=== PATIENT | female | born 1945 | race Caucasian/White ===

== ENCOUNTER → 2018-10-17 16:07 | Outpatient (CLI) | payer MEDICARE, SELFPAY ==
--- NOTE | 2018-10-17 16:11 | DI.RAD.S_ITS ---
PROCEDURE: XR LUMBAR SPINE MIN 4V INDICATIONS: back pain TECHNIQUE: 5 views of the lumbar spine were acquired. COMPARISON: None. FINDINGS: Bones: 5 nonrib-bearing vertebrae are present. There is normal bony alignment. No vertebral body compression fractures. No suspicious bony lesions. Soft tissues: Overlying bowel gas pattern is normal. No suspicious soft tissue calcifications. Oblique images: No pars defects. IMPRESSION: 1. No spondylolysis or spondylolisthesis. Dictated by: Altagracia Beck M.D. on 10/17/2018 at 16:50 Approved by: Altagracia Beck M.D. on 10/17/2018 at 16:50
--- NOTE | 2018-10-17 16:11 | DI.RAD.S_ITS ---
PROCEDURE: XR THORACIC SPINE 2V INDICATIONS: back pain TECHNIQUE: 2 views of the thoracic spine were acquired. COMPARISON: None. FINDINGS: Bones: No fractures or dislocations. No suspicious bony lesions. There is exaggerated kyphosis of the thoracic spine with mild anterior wedging at the thoracolumbar junction and throughout the mid thoracic spine. 12 pairs of ribs are noted, and appear intact where visualized. Soft tissues: No paravertebral stripe thickening. IMPRESSION: Exaggerated kyphosis of the thoracic spine secondary to mild diffuse anterior wedging. No acute appearing wedge compression deformity noted. Dictated by: Altagracia Beck M.D. on 10/17/2018 at 16:49 Approved by: Altagracia Beck M.D. on 10/17/2018 at 16:49
--- NOTE | 2018-10-17 16:14 | DI.RAD.S_ITS ---
PROCEDURE: XR CERVICAL SPINE MIN 6V INDICATIONS: neck pain TECHNIQUE: 8 views of the cervical spine were acquired. COMPARISON: None. FINDINGS: Bones: No fractures or dislocations to the C7 level. No suspicious bony lesions. There is normal range of motion between flexion and extension. Approximately 2 mm subluxation is present from flexion to extension at C3-4. No neuroforaminal stenosis. Soft tissues: Prevertebral soft tissues are normal in thickness. IMPRESSION: 1. Trace subluxation at C3-4 from flexion to extension. 2. No neuroforaminal stenosis. Dictated by: Altagracia Beck M.D. on 10/17/2018 at 16:47 Approved by: Altagracia Beck M.D. on 10/17/2018 at 16:49
== END ==
PROVIDERS: PCP Nurse Practitioner Family; Visit Provider Physical Medicine & Rehabilitation
DX: M54.2 Cervicalgia (principal); M54.9 Dorsalgia, unspecified; M47.812 Spondylosis without myelopathy or radiculopathy, cervical region; M47.817 Spondylosis without myelopathy or radiculopathy, lumbosacral region; S22.080A Wedge compression fracture of T11-T12 vertebra, initial encounter for closed fracture; Z68.23 Body mass index [BMI] 23.0-23.9, adult
CPT/HCPCS: 72052; 72070; 72110; 99214

== ENCOUNTER → 2018-12-31 17:19 | Outpatient (CLI) | payer MEDICARE, SELFPAY ==
--- NOTE | 2018-12-31 17:21 | DI.MRI.S_ITS ---
PROCEDURE: MR THORACIC SPINE WO CON INDICATIONS: Thoracic radiculopathy TECHNIQUE: Noncontrast sagittal T1 spine echo and T2 fast spin echo, sagittal STIR, axial T1 and T2 fast spin echo through the thoracic spine. COMPARISON: [facility], CR, XR LUMBAR SPINE MIN 4V, 10/17/2018, 16:16. [facility], CR, XR THORACIC SPINE 2V, 10/17/2018, 16:16. FINDINGS: Image quality: Excellent. Alignment and Curvature: There is normal bony alignment. Bone Marrow: Marrow is of normal overall signal. No acute vertebral body compression fractures. Several mild anterior wedge deformities are seen, without acute features. The most prominent of these is seen at T12. Scattered foci are seen, which are hyperintense on T1-weighted and T2-weighted imaging, which are most consistent with benign vertebral body hemangiomas. Spinal Cord: Visualized spinal cord is normal in size and signal. Paraspinous Soft Tissues: No paravertebral masses. Miscellaneous: At T10-T11, there is a central/left disc protrusion seen, with minimal central canal narrowing. No neural foraminal narrowing. At T12-L1, there is generalized disc bulge seen, with a superimposed central/right disc protrusion, with mild central canal narrowing and mild mass effect upon the ventral spinal cord. No neural foraminal narrowing is seen. IMPRESSION: Accentuated thoracic kyphosis, with several mild anterior wedge deformities. Focal lower thoracic spine degenerative change. Dictated by: Tee Fletcher M.D. on 01/01/2019 at 9:03 Approved by: Tee Fletcher M.D. on 01/01/2019 at 9:07
== END ==
PROVIDERS: PCP Nurse Practitioner Family; Visit Provider Physical Medicine & Rehabilitation
DX: M40.204 Unspecified kyphosis, thoracic region (principal); M51.14 Intervertebral disc disorders with radiculopathy, thoracic region; M51.15 Intervertebral disc disorders with radiculopathy, thoracolumbar region
CPT/HCPCS: 72146

== ENCOUNTER 2019-04-23 09:33 | Outpatient (CLI) | payer MEDICARE, SELFPAY ==
[2019-04-23] VITALS (7 sets, daily range): BP systolic 106–139; BP diastolic 47–76; PULSE 53–72; RESP 16–18; TEMP 36.1; O2SAT 96–100
--- NOTE | 2019-04-23 10:27 | DI.RAD.S_ITS ---
PROCEDURE: PAIN L INTERLAMINAR/CAUDAL INJ INDICATIONS: INTERVERTEBRAL DISC DISPLACEMENT FINDINGS: Fluoroscopic spot filming was performed to verify placement of spinal needles at the T10-T11 level(s), as labeled on the films. Appropriate location(s) of the needle tip(s) was confirmed by injection of iodinated contrast. IMPRESSION: Fluoroscopy for pain management. Dictated by: Lawrence Shaw M.D. on 04/23/2019 at 17:42 Approved by: Lawrence Shaw M.D. on 04/23/2019 at 17:42
[2019-04-23] MEDS: MIDAZOLAM 5 MG/5 ML VIAL IV (11:15)
[2019-04-23] MEDS: fentaNYL 100 MCG/2 ML INJ 50 MCG IV (11:16)
[2019-04-23] MEDS: IOPAMIDOL 15 ML VIAL 3 ML INJ (11:22)
[2019-04-23] MEDS: BUPIVACAINE 0.25% (PF) VIAL 2 ML INJ (11:22)
[2019-04-23] MEDS: DEXAMETHASONE 10 MG/ML VIAL 30 MG INJ (11:23)
--- NOTE | 2019-04-23 11:28 | PC.NURSE ---
ASSISTING PT OFF TABLE AND TRANSPORTING TO POST PROC AREA IN STABLE CONDITION. PASSING RN CARE OF PT OFF TO JOHN Bai RN.
--- NOTE | 2019-04-23 11:34 | PM.PROC.1 ---
Procedures Date/Time Date of procedure: 04/23/19 Time of procedure: 11:34 General Procedure description: Preop diagnosis: Thoracic stenosis with HNP Postprocedure diagnosis: Thoracic stenosis with HNP Physician: Froilan Land D.O. Indications: Brittany is referred by KRIS Hernandez for treatment of thoracic DDD/DJD with radiculopathy Description of procedure: Fluoroscopic guided, contrast controlled T10/11 translaminar epidural steroid injection with conscious sedation. Following review of allergy review potential side effects and complications, including, but not necessarily limited to, infection, allergic reaction, local tissue breakdown, temporary as well as permanent nerve injury, stroke, paralysis and possible , the patient indicated that they understood and agreed to proceed. An informed consent document was signed by the patient, witnessed by the nurse, and placed in the patient's chart. Additionally other treatment options including modalities, medications and physical therapy were reviewed with the patient. After review of previous anaesthesic history and IV conscious sedation the patient was deemed safe to proceed with todays procedure with IV conscious sedation as ASA class II designation. Safety time-out was performed to confirm patient ID, procedure to be performed and site of procedure. IV sedation was accomplished with a combination of 2mg of Versed and 50mcg of Fentanyl administered by the RN after DO order, titrated to patient comfort during the course of the procedure while the patient remained responsive to all verbal commands In the prone position, following sterile prep and drape of the thoracic region the T10/11 translaminar space was identified fluoroscopically. The skin was anesthetized via 25 gauge 20 mm sheath with 1% lidocaine solution. At this point a 20 gauge epidural needle was atraumatically introduced and advanced under fluoroscopic guidance into the region of the T10/11 translaminar space depth was confirmed on lateral view. Radiographic data, including multiple fluoroscopic views of the thoracic spine, reveals spinal needle at the T10/11 translaminar space. Lateral views then showed the placement of the needle in the epidural space. Subsequent view show contrast material flowing superiorly and inferiorly in the epidural space. No vascular or intrathecal uptake is observed. At this point using loss of resistance technique with saline and the epidural space was entered. This was confirmed followed negative aspiration and injection of approximately 1.5 cc of Isovue 200 showed excellent epidural flow without vascular or intrathecal uptake. At this point, 1 cc of 1% lidocaine solution was admitted as a test dose and the patient was observed for an appropriate period of time without signs or symptoms of complications, including abdominal pain, shortness of breath, bilateral upper and lower extremity weakness, nausea and vomiting, prior to steroid injection. Subsequently, 3cc or 30mg of dexamethasone was then injected without incident. The patient tolerated the procedure well without signs of complications and subsequently was transferred to the recovery room for further monitoring. The patient was then transferred to the recovery area with their observed for an appropriate time after the injection. Patient reported a VAS score of 7 prior to the procedure and postprocedure VAS of 2. Total fluoroscopy time: 56.3 sec Total conscious sedation time: 24 min Froilan Land D.O. Complications: none
== END 2019-04-23 11:55 ==
PROVIDERS: PCP Nurse Practitioner Family; Visit Provider Physical Medicine & Rehabilitation
DX: M48.04 Spinal stenosis, thoracic region (principal); M51.14 Intervertebral disc disorders with radiculopathy, thoracic region; M47.24 Other spondylosis with radiculopathy, thoracic region
CPT/HCPCS: 62321; 62323; 99152; J1100; J2250; J3010

== ENCOUNTER 2019-07-21 10:24 | Outpatient (CLI) | payer MEDICARE, SELFPAY ==
[2019-07-21] VITALS (11 sets, daily range): BP systolic 79–129; BP diastolic 43–71; PULSE 52–68; RESP 12–18; TEMP 36.2; O2SAT 94–96
--- NOTE | 2019-07-21 10:25 | DI.RAD.S_ITS ---
PROCEDURE: PAIN C/T INTERLAMINAR INJECT INDICATIONS: SPINAL STENOSIS FINDINGS: Fluoroscopic spot filming was performed to verify placement of spinal needles at the C6-C7 level(s), as labeled on the films. Appropriate location(s) of the needle tip(s) was confirmed by injection of iodinated contrast. Dictated by: Dheeraj Boyce M.D. on 07/21/2019 at 13:40 Approved by: Dheeraj Boyce M.D. on 07/21/2019 at 13:41
[2019-07-21] MEDS: MIDAZOLAM 5 MG/5 ML VIAL IV (11:33)
[2019-07-21] MEDS: fentaNYL 100 MCG/2 ML INJ 50 MCG IV (11:33)
--- NOTE | 2019-07-21 11:38 | PC.NURSE ---
AWARE OF DECREASED BP. NO NEW ORDERS.
[2019-07-21] MEDS: BUPIVACAINE 0.25% (PF) VIAL 2 ML INJ (11:39)
[2019-07-21] MEDS: IOPAMIDOL 15 ML VIAL 3 ML INJ (11:40)
[2019-07-21] MEDS: DEXAMETHASONE 10 MG/ML VIAL 20 MG INJ (11:40)
--- NOTE | 2019-07-21 11:49 | PM.PROC.1 ---
Procedures Date/Time Date of procedure: 07/21/19 Time of procedure: 11:49 General Procedure description: PREOP DIAGNOSIS 1. CERVICAL STENOSIS, 2. CERVICAL HNP WITH UPPER EXTREMITY RADICULAR FEATURES, POST OP DIAGNOSIS 1. CERVICAL STENOSIS, 2. CERVICAL HNP WITH UPPER EXTREMITY RADICULAR FEATURES, PROCEDURES 1. FLUORSCOPICALLY GUIDED CONTRAST CONTROLLED INTERLAMINAR EPIDURAL STEROID INJECTION - C6/7 TL CARIDAD PHYSICIAN: Froilan Land, DO INDICATIONS Brittany is referred for treatment of Cervical HNP with Upper Extremity Paresthesias. FINDINGS Cervical Stenosis due to disc deterioration and nerve root irritation and nerve root irritation DESCRIPTION OF PROCEDURE Fluoroscopically guided, contrast-controlled C6/7 translaminar epidural steroid injection with conscious sedation. Following review of allergy and review of potential side effects and complications, including, but not necessarily limited to, infection, allergic reaction, local tissue breakdown, temporary as well as permanent nerve injury, stroke, paralysis, and possible , the patient indicated that patient understood and agreed to proceed. An informed consent document was signed by the patient, witnessed by a nurse, and placed in the patient's chart. Additionally, other treatment options including modalities, medications, and physical therapy were reviewed with the patient. After review of previous anaesthesic history and IV conscious sedation the patient was deemed safe to proceed with todays procedure with IV conscious sedation as ASA class II designation. Safety time-out was performed to confirm patient ID, procedure to be performed and site of procedure. IV sedation was accomplished with a combination of 2mg of Versed and 50mcg of Fentanyl administered by the RN after DO order, titrated to patient comfort during the course of the procedure while the patient remained responsive to all verbal commands. In the prone position, following sterile prep and drape of the cervical region, the C6/7 translaminar space was identified fluoroscopically. The skin was anesthetized via a 25-gauge 1.5-inch needle with 1% lidocaine solution. At this point, a 25-gauge, 2.5-inch short bevel spinal needle was atraumatically introduced and advanced under fluoroscopic guidance into epidural space at the C6/7 translaminar space. Depth was confirmed on lateral view. Radiological data, including multiple fluoroscopic views of the cervical spine, reveal a spinal needle at the C6/7 translaminar space. Lateral views then show placement of the needle in the epidural space. Subsequent views show contrast material flowing superiorly and inferiorly in the epidural space. DSA fluoroscopy with live contrast injection, once again, confirmed no vascular or intrathecal uptake. At this point, using loss of resistance technique with saline and air, the epidural space was entered. Following negative aspiration, injection of approximately 1.5 cc of Isovue-200 with live fluoroscopy in the AP view confirmed epidural flow in the epidural space without vascular or intrathecal uptake observed. Subsequently, a test dose of 1 cc of 1% lidocaine solution was injected and patient was observed for two minutes without signs or symptoms of complications, including abdominal pain, shortness of breath, bilateral upper or lower extremity weakness, nausea and vomiting, prior to steroid injection. At this point, 2cc or 20mg of dexamethasone was then injected without incident. The patient tolerated the procedure well without signs or symptoms of complications prior to being transferred to the recovery area for further monitoring, The patient was then transferred to the recovery area where they were observed for an appropriate period of time after the injection. The patient reported a VAS score of 6 prior to the procedure and a post-procedure VAS of 0. Total Fluoroscopy Time: 32 seconds Total Conscious Time: 24min POST OP INSTRUCTIONS The patient was provided a Pain Log to continue to record their response to the target-specific procedure prior to follow-up visit with the referring provider. Additionally, specific post-injection care instructions and a contact number to our office were provided if concerns arise regarding possible complications associated with the procedure are suspected. Froilan Land DO Complications: none
== END 2019-07-21 12:20 | disposition home or self-care (01) ==
PROVIDERS: Visit Provider Physical Medicine & Rehabilitation
DX: M48.02 Spinal stenosis, cervical region (principal); M50.123 Cervical disc disorder at C6-C7 level with radiculopathy; R20.2 Paresthesia of skin
CPT/HCPCS: 62321; 99152; J1100; J2250; J3010